=== PATIENT | female | born 1995 ===

== ENCOUNTER → 2016-11-30 | Outpatient (CLI) | payer BC ==
[2016-11-30 16:35] LABS: CH 26.9; CHCM 33.4; HCT 34.9 % (34.0-46.0); HDW 2.68; HGB 11.6 gm/dL (11.4-16.0); MCHC 33.4 g/dL (31.0-37.0); MCV 80.9 fL (80.0-100.0); Mean Platelet Volume 6.8; RBC 4.31 m/uL (3.80-5.40); RDW 13.9 % (11.5-15.5); WBC 10.1 k/uL (3.8-10.6)
[2016-11-30 16:50] LABS: Glucose 87 mg/dL (74-99); Non-African American GFR(MDRD) >60 (>60 ml/min/1.73 sqM)
[2016-11-30 17:21] LABS: Hepatitis B Surface Ag Index 0.06
[2016-12-01 00:24] LABS: Treponemal Ab Non-Reactive (Non-Reactive)
== END | disposition home or self-care (01) ==
LOC: LABWHC1 16:03
PROVIDERS: ATTEND Obstetrics & Gynecology
DX: Z34.91 Encounter for supervision of normal pregnancy, unspecified, first trimester (principal); Z3A.00 Weeks of gestation of pregnancy not specified
CPT/HCPCS: 36415; 82565; 82947; 85027; 86762; 86777; 86778; 86780; 86850; 86900; 86901; 87340

== ENCOUNTER → 2016-12-27 | Outpatient (CLI) | payer BC ==
--- NOTE | 2016-12-27 10:49 | US ---
EXAMINATION TYPE: US OB anatomy transabd second trimester DATE OF EXAM: 12/27/2016 10:34 AM COMPARISON: First trimester ultrasound November 09, 2016 HISTORY: LGA TECHNIQUE: Transvaginal (TV) and Transabdominal (TA) EXAM MEASUREMENTS: GESTATIONAL AGE / DATING Physician Established: (19 weeks/6 days) EDC: 05/17/17 Dates by LMP: unknown Dates by First Scan: (19 weeks/6 days) EDC: 05/17/17 Dates by Current Scan for: (19 weeks/2 days) EDC: 05/21/17 SURVEY IUP: Single PLACENTA: Posterior PREVIA: No previa GIANNI: 10.6 cm Normal CERVICAL LENGTH (transabdominal: norm > 3.0cm): 4.1 cm BIOMETRY PRESENTATION: Variable LIE: Transverse lie with head maternal LT BPD: 4.1 cm 18 weeks / 3 days HC: 16.0 cm 18 weeks / 6 days AC: 14.5 cm 19 weeks / 5 days FL: 3.2 cm 19 weeks / 6 days ESTIMATED WEIGHT IN GRAMS: 304.5 grams ESTIMATED WEIGHT IN LBS/OZS: 0 lbs. 11 oz. WEIGHT PERCENTAGE BASED ON ESTABLISHED DATE: 33.4 % HC/AC: 1.11 Normal FL/AC: 21.82 Normal HEART RATE: 137 bpm RHYTHM: Normal ANATOMY SEEN (within normal limits): * Lateral Vent (< 1 cm) 0.5 cm * Cisterna Magna (< 1.1 cm) 0.4 cm * Nuchal Fold (< 0.6 cm) 0.3 cm * Cerebellum (varies with age) 1.5 cm Choroid Plexus (bilateral) Midline Falx Cavus Septi Pellucidi Four Chamber Heart Outflow tracts: LVOT/RVOT Stomach Situs Diaphragm Kidneys (bilateral) Bladder Cord Insert Three Vessel Cord Longitudinal Spine Transverse Spine Arms (bilateral) Legs (bilateral) ANATOMY NOT SEEN: due to position Nose / Lips TECHNOLOGIST IMPRESSION: Single viable IUP 19wks/2days with MIGUEL ÁNGEL of 05/21/17 Single live intrauterine gestation is redemonstrated. Amniotic fluid index is within normal limits. T here is no ultrasound evidence for placenta previa. Variable presentation to fetus is currently seen. biometry measurements are within normal limits. Detailed anatomical survey shows no suspicious abnormality during real-time scanning. nose and lips are suboptimally evaluated due to positio carlos. IMPRESSION: As above
== END | disposition home or self-care (01) ==
LOC: RADUSWWP 09:14
PROVIDERS: ATTEND Obstetrics & Gynecology
DX: O36.62X0 Maternal care for excessive fetal growth, second trimester, not applicable or unspecified (principal); Z3A.19 19 weeks gestation of pregnancy
CPT/HCPCS: 76811

== ENCOUNTER → 2017-01-29 | Outpatient (CLI) | payer BC ==
[2017-01-29 12:16] LABS: CH 26.7; CHCM 32.7; HCT 32.5 % (34.0-46.0); HDW 3.26; HGB 10.4 gm/dL (11.4-16.0); Hypochromasia Slight; MCH 26.3 pg (25.0-35.0); MCV 82.2 fL (80.0-100.0); Mean Platelet Volume 7.6; RBC 3.95 m/uL (3.80-5.40)
== END ==
LOC: LABWHC1 10:53
PROVIDERS: ATTEND Obstetrics & Gynecology
DX: Z34.82 Encounter for supervision of other normal pregnancy, second trimester (principal)
CPT/HCPCS: 36415; 82950; 85027

== ENCOUNTER → 2017-02-28 | Outpatient (CLI) | payer BC ==
[2017-02-28 12:48] LABS: Glucose 3 Hour, Gest 78 mg/dL
== END | disposition home or self-care (01) ==
LOC: LABWHC1 08:27
PROVIDERS: ATTEND Obstetrics & Gynecology
DX: O24.419 Gestational diabetes mellitus in pregnancy, unspecified control (principal); Z3A.00 Weeks of gestation of pregnancy not specified
CPT/HCPCS: 36415; 82951; 82952

== ENCOUNTER 2017-05-23 10:47 | Inpatient (IN) | payer BC ==
[2017-05-23] MEDS ORDERED: LIDOCAINE 1% (PF) 10 MG/ML (30 ML SDV) SQ PRN (10:56)
[2017-05-23] MEDS ORDERED: OXYTOCIN 10 UNIT/ML 1 ML VIAL IM PRN (10:56)
[2017-05-23] MEDS ORDERED: TERBUTALINE 1 MG/ML VIAL SQ PRN (10:56)
[2017-05-23] MEDS ORDERED: METHYLERGONOVINE 0.2 MG/ML 1 ML AMP IM PRN (10:56)
[2017-05-23] MEDS ORDERED: CARBOPROST TROMETHAMINE 250 MCG/ML 1 ML AMP IM PRN (10:56)
[2017-05-23] MEDS ORDERED: OXYTOCIN 20 UNITS/1000 ML NS 1,000 ML IV SCH ×2 (11:00→17:45)
[2017-05-23] MEDS ORDERED: LACTATED RINGERS 1,000 ML IV SCH (11:00)
[2017-05-23 11:31] VITALS: BMI 33.9
[2017-05-23 11:46] LABS: Basophils % (A) 0 %; CH 20.8; CHCM 30.3; Eosinophils # (A) 0.1 k/uL (0-0.7); Eosinophils % (A) 1 %; HCT 30.5 % (34.0-46.0); HGB 9.6 gm/dL (11.4-16.0); Hypochromasia Marked; Luc # (Auto) 0.21; Luc % (Auto) 2; Lymphocytes # (A) 1.6 k/uL (1.0-4.8); Lymphocytes % (A) 15 %; MCH 21.8 pg (25.0-35.0); MCHC 31.5 g/dL (31.0-37.0); MCV 69.2 fL (80.0-100.0); Mean Platelet Volume 6.9; Microcytosis Marked; Monocytes # (A) 0.5 k/uL (0-1.0); Monocytes % (A) 4 %; Neutrophils # (A) 8.3 k/uL (1.3-7.7); Neutrophils % (A) 78 %; RBC 4.41 m/uL (3.80-5.40); WBC 10.7 k/uL (3.8-10.6); WBC (Perox) 11.33
[2017-05-23] MEDS ORDERED: BUPIVACAINE (PF) 0.25% 30 ML VIAL ONE (14:39)
[2017-05-23] MEDS ORDERED: SODIUM CHLORIDE 0.9% 100 ML BAG ONE (14:39)
[2017-05-23] MEDS ORDERED: fentaNYL (PF) 50 MCG/ML 5 ML AMP ONE (14:39)
[2017-05-23] MEDS ORDERED: Acetaminophen-Codeine 300-30mg TAB PO PRN ×2 (17:42)
[2017-05-23] MEDS ORDERED: diphenhydrAMINE 50 MG/ML 1 ML VIAL IVP PRN ×2 (17:42)
[2017-05-23] MEDS ORDERED: diphenhydrAMINE 25 MG CAP PO PRN (17:42)
[2017-05-23] MEDS ORDERED: IBUPROFEN 600 MG TAB PO PRN (17:42)
[2017-05-23] MEDS ORDERED: SIMETHICONE 80 MG CHEWABLE PO PRN (17:42)
[2017-05-23] MEDS ORDERED: WITCH HAZEL 1 EACH MED..PAD TOPICAL PRN (17:42)
[2017-05-23] MEDS ORDERED: LANOLIN CREAM 5 GM TUBE TOPICAL PRN (17:42)
[2017-05-23] MEDS ORDERED: ACETAMINOPHEN TAB 325 MG TAB PO PRN (17:42)
[2017-05-23] MEDS ORDERED: BENZOCAINE/MENTHOL SPRAY 1 GM/SPRAY AEROSOL TOPICAL PRN (17:42)
[2017-05-23] MEDS ORDERED: diphenhydrAMINE 50 MG CAP PO PRN (17:42)
[2017-05-23] MEDS ORDERED: HYDROCORTISONE 2.5% RECTAL CREAM 30 GM TUBE RECTAL PRN (17:42)
[2017-05-23] MEDS ORDERED: ZOLPIDEM 5 MG TAB PO PRN (17:42)
--- NOTE | 2017-05-23 17:45 | P.HPOB ---
History of Present Illness H&P Date: 05/23/17 Chief Complaint: Induction of labor 21-year-old presents at 40 weeks and 6 days for induction of labor. She came to my office today for a NST and GIANNI. If the GIANNI was 16 cm but the NST reactive did have some variable decelerations. She was sent to labor and delivery for induction of labor. Her cervix is 3 cm dilated, 70% effaced, -3 station. She is clovis irregularly. heart tones 135 -140 with moderate variability and reactive. Review of Systems All systems: negative Constitutional: Denies chills, Denies fever Eyes: denies blurred vision, denies pain Ears, nose, mouth and throat: Denies headache, Denies sore throat Cardiovascular: Denies chest pain, Denies shortness of breath Respiratory: Denies cough Gastrointestinal: Denies abdominal pain, Denies diarrhea, Denies nausea, Denies vomiting Genitourinary: Denies dysuria, Denies hematuria Musculoskeletal: Denies myalgias Integumentary: Denies pruritus, Denies rash Neurological: Denies numbness, Denies weakness Psychiatric: Denies anxiety, Denies depression Endocrine: Denies fatigue, Denies weight change Past Medical History Past Medical History: No Reported History Additional Past Medical History / Comment(s): Obstetric history: She's had one previous vaginal delivery. Her second Blood type O positive, antibodies negative, rubella immune, treponema antibody negative, toxoplasmosis negative, hepatitis B negative. Abnormal one-hour close tolerance test but normal 3 hour. History of Any Multi-Drug Resistant Organisms: None Reported Past Surgical History: No Surgical Hx Reported Past Anesthesia/Blood Transfusion Reactions: No Reported Reaction Past Psychological History: No Psychological Hx Reported Smoking Status: Never smoker Past Alcohol Use History: None Reported Past Drug Use History: None Reported - Past Family History Mother Family Medical History: Cancer, Diabetes Mellitus Father Family Medical History: Hypertension Medications and Allergies Home Medications Medication Instructions Recorded Confirmed Type Pnv,Calcium 72/Iron/Folic Acid 1 tab PO DAILY 02/17/16 02/29/16 History [Pnv Plus Multivit Tab] Allergies Allergy/AdvReac Type Severity Reaction Status Date / Time meclizine Allergy Rash/Hives Verified 05/23/17 10:55 sulfamethoxazole AdvReac Rash/Hives Verified 05/23/17 10:55 [From Bactrim] trimethoprim [From Bactrim] AdvReac Rash/Hives Verified 05/23/17 10:55 Exam Osteopathic Statement: *. No significant issues noted on an osteopathic structural exam other than those noted in the History and Physical/Consult. - Vital Signs Vital signs: Vital Signs Temp Pulse Resp BP 05/23/17 17:20 93 16 112/80 05/23/17 17:05 98.1 F 95 16 111/64 05/23/17 11:27 96.8 F L 73 18 125/71 Intake and Output 05/23/17 05/23/17 05/23/17 06:59 14:59 22:59 Intake Total 18.4 Balance 18.4 Intake: Intake, IV Titration 18.4 Amount Oxytocin 20 Units/1000 ml 18.4 Ns 1,000 ml @ 1 MILLIUNIT/MIN 3 mls/hr IV .Q24H VIVIEN Rx#:[id number] Other: Weight 76.204 kg Patient Weight 05/24/17 06:59 Weight 76.204 kg Heart: Regular rate and rhythm Lungs: Clear to auscultation bilaterally Abdomen: Soft, nontender Extremities: Negative Homans sign Results Result Diagrams: 05/23/17 11:15 Abnormal Lab Results - Last 24 Hours (Table) 05/23/17 Range/Units 11:15 WBC 10.7 H (3.8-10.6) k/uL Hgb 9.6 L (11.4-16.0) gm/dL Hct 30.5 L (34.0-46.0) % MCV 69.2 L (80.0-100.0) fL MCH 21.8 L (25.0-35.0) pg RDW 16.0 H (11.5-15.5) % Neutrophils # 8.3 H (1.3-7.7) k/uL Assessment and Plan (1) Normal labor Status: Acute Plan: 1. Induction of labor with amniotomy and Pitocin 2. Anticipate normal vaginal delivery
--- NOTE | 2017-05-23 17:47 | P.PROBDLV ---
Vaginal Delivery Note - . Vaginal Delivery Note: 21-year-old presented at 40 weeks and 6 days for induction of labor. Her cervix was 3 cm dilated, 70% effaced, -3 station. She is clovis irregularly. heart tones 100 3540 with moderate variability and reactive. Pitocin was started. Amniotomy was performed at 12:43 PM and thick meconium fluid was noted. She did get an epidural when she was 4 centers dilated. When she was completely dilated she pushed 3 times and delivered a viable female over intact perineum under epidural anesthesia at 1659. Head delivered OA, anterior shoulder delivered with downward traction followed by posterior shoulder and rest of body. Nose and mouth bulb suctioned, cord clamped and cut, placed mother's abdomen. Apgars 9, 9, weight 7 lbs. 4 oz. Placenta delivered spontaneously, intact with three-vessel cord at 1703. Vagina, cervix, and perineum were inspected. First-degree midline laceration was repaired with 3-0 Vicryl. Estimated blood loss 150 mL. Other and baby in stable condition.
[2017-05-23] MEDS: SENNOSIDES-DOCUSATE SODIUM 1 EACH TAB PO SCH (21:12)
[2017-05-24 04:37] VITALS: RESP 18
--- NOTE | 2017-05-24 08:21 | P.DS ---
Providers Date of admission: 05/23/17 10:47 Expected date of discharge: 05/24/17 Attending physician: Carissa Porras - Discharge Diagnosis(es) (1) Normal labor Current Visit: Yes Status: Resolved (2) Normal vaginal delivery Current Visit: Yes Status: Acute Hospital Course: Patient presented for induction of labor. Gen. are normal vaginal delivery. Had an uncomplicated course. She'll be discharged home # 1 in stable condition to follow-up With me in 6 weeks. Plan - Discharge Summary New Discharge Prescriptions: No Action Pnv,Calcium 72/Iron/Folic Acid [Pnv Plus Multivit Tab] 1 tab PO DAILY Discharge Medication List Pnv,Calcium 72/Iron/Folic Acid [Pnv Plus Multivit Tab] 1 tab PO DAILY 02/17/16 [History] Follow up Appointment(s)/Referral(s): Carissa Porras DO [Doctor of Osteopathic Medicine] - 6 Weeks
[2017-05-24] MEDS: SENNOSIDES-DOCUSATE SODIUM 1 EACH TAB PO SCH (08:35)
[2017-05-24 09:30] VITALS: BP 120/69; PULSE 85; TEMP 98.3
== END 2017-05-24 18:33 | disposition home or self-care (01) | DRG 775 ==
LOC: 4FBP 10:47
PROVIDERS: ADMIT Obstetrics & Gynecology; ATTEND Obstetrics & Gynecology
PROC: 10E0XZZ Delivery of Products of Conception, External Approach (ICD-10-PCS; principal; 2017-05-23)
PROC: 0HQ9XZZ Repair Perineum Skin, External Approach (ICD-10-PCS; 2017-05-23)
PROC: 3E033VJ Introduction of Other Hormone into Peripheral Vein, Percutaneous Approach (ICD-10-PCS; 2017-05-23)
PROC: 10907ZC Drainage of Amniotic Fluid, Therapeutic from Products of Conception, Via Natural or Artificial Opening (ICD-10-PCS; 2017-05-23)
PROC: 00HU33Z Insertion of Infusion Device into Spinal Canal, Percutaneous Approach (ICD-10-PCS; 2017-05-23)
PROC: 3E0R3CZ (ICD-10-PCS; 2017-05-23)
DX: O77.0 Labor and delivery complicated by meconium in amniotic fluid (principal); O70.0 First degree perineal laceration during delivery; Z37.0 Single live birth; Z88.1 Allergy status to other antibiotic agents; Z88.2 Allergy status to sulfonamides; Z88.8 Allergy status to other drugs, medicaments and biological substances; Z3A.40 40 weeks gestation of pregnancy; Z82.49 Family history of ischemic heart disease and other diseases of the circulatory system; Z83.3 Family history of diabetes mellitus; Z80.9 Family history of malignant neoplasm, unspecified
CPT/HCPCS: 85025; 88307

== ENCOUNTER 2019-05-21 23:22 | Emergency (ER) | payer BC ==
[2019-05-21 23:32] VITALS: RESP 18
--- NOTE | 2019-05-22 00:02 | ED ---
Dizziness HPI - General Chief Complaint: Dizziness Stated Complaint: Medication Reaction Time Seen by Provider: 05/21/19 23:27 Source: patient, EMS Mode of arrival: EMS Limitations: no limitations - History of Present Illness MD Complaint: dizziness -: days(s) Timing: intermittent Description: "room spinning" History of Same: No History of Trauma: No Severity: moderate Improves With: remaining still Worsens With: other (Driving) Associated Symptoms: denies other symptoms - Related Data Home Medications Medication Instructions Recorded Confirmed Ferrous Sulfate [Feosol] 325 mg PO DAILY 05/21/19 05/21/19 Levothyroxine Sodium [Synthroid] 25 mcg PO DAILY 05/21/19 05/21/19 Allergies Allergy/AdvReac Type Severity Reaction Status Date / Time meclizine Allergy Rash/Hives Verified 05/21/19 23:40 sulfamethoxazole AdvReac Rash/Hives Verified 05/21/19 23:40 [From Bactrim] trimethoprim [From Bactrim] AdvReac Rash/Hives Verified 05/21/19 23:40 Review of Systems ROS Statement: Those systems with pertinent positive or pertinent negative responses have been documented in the HPI. ROS Other: All systems not noted in ROS Statement are negative. Constitutional: Denies: fever, chills Respiratory: Denies: cough, dyspnea Cardiovascular: Denies: chest pain, palpitations, edema, syncope Gastrointestinal: Denies: abdominal pain, vomiting, diarrhea Genitourinary: Denies: dysuria, frequency Musculoskeletal: Denies: back pain Skin: Denies: rash Neurological: Denies: headache, weakness, numbness, paresthesias, confusion Past Medical History Past Medical History: No Reported History Additional Past Medical History / Comment(s): Obstetric history: She's had one previous vaginal delivery. Her second Blood type O positive, antibodies negative, rubella immune,. Receving IV iron (Feraheme) secondary to anemia. History of Any Multi-Drug Resistant Organisms: None Reported Past Surgical History: No Surgical Hx Reported Past Anesthesia/Blood Transfusion Reactions: No Reported Reaction Past Psychological History: No Psychological Hx Reported Smoking Status: Never smoker Past Alcohol Use History: None Reported Past Drug Use History: None Reported - Past Family History Mother Family Medical History: Cancer, Diabetes Mellitus Father Family Medical History: Hypertension General Exam Limitations: no limitations General appearance: alert, in no apparent distress Head exam: Present: atraumatic, normocephalic Eye exam: Present: normal appearance, PERRL, EOMI. Absent: scleral icterus, conjunctival injection, nystagmus ENT exam: Present: normal oropharynx Neck exam: Present: normal inspection Respiratory exam: Present: normal lung sounds bilaterally. Absent: respiratory distress, wheezes, rales, rhonchi, stridor Cardiovascular Exam: Present: regular rate, normal rhythm, normal heart sounds. Absent: systolic murmur, diastolic murmur, rubs, gallop GI/Abdominal exam: Present: soft. Absent: distended, tenderness, guarding, rebound, rigid, mass Extremities exam: Present: normal inspection, normal capillary refill. Absent: pedal edema, calf tenderness Neurological exam: Present: alert, oriented X3, CN II-XII intact. Absent: motor sensory deficit Skin exam: Present: warm, dry, intact, normal color. Absent: rash Course Vital Signs 05/21/19 23:24 Temperature 98.5 F Pulse Rate 72 Respiratory 18 Rate Blood Pressure 115/80 O2 Sat by Pulse 99 Oximetry Medical Decision Making - Lab Data Result diagrams: 05/22/19 00:23 05/22/19 00:23 Lab Results 05/22/19 05/22/19 05/22/19 Range/Units 00:01 00:01 00:23 WBC 10.9 H (3.8-10.6) k/uL RBC 4.33 (3.80-5.40) m/uL Hgb 12.8 (11.4-16.0) gm/dL Hct 36.9 (34.0-46.0) % MCV 85.4 (80.0-100.0) fL MCH 29.6 (25.0-35.0) pg MCHC 34.6 (31.0-37.0) g/dL RDW 13.8 (11.5-15.5) % Plt Count 292 (150-450) k/uL Neutrophils % 68 % Lymphocytes % 22 % Monocytes % 5 % Eosinophils % 2 % Basophils % 0 % Neutrophils # 7.4 (1.3-7.7) k/uL Lymphocytes # 2.4 (1.0-4.8) k/uL Monocytes # 0.6 (0-1.0) k/uL Eosinophils # 0.3 (0-0.7) k/uL Basophils # 0.1 (0-0.2) k/uL Sodium (137-145) mmol/L Potassium (3.5-5.1) mmol/L Chloride (98-107) mmol/L Carbon Dioxide (22-30) mmol/L Anion Gap mmol/L BUN (7-17) mg/dL Creatinine (0.52-1.04) mg/dL Est GFR (CKD-EPI)AfAm (>60 ml/min/1.73 sqM) Est GFR (CKD-EPI)NonAf (>60 ml/min/1.73 sqM) Glucose (74-99) mg/dL Calcium (8.4-10.2) mg/dL Total Bilirubin (0.2-1.3) mg/dL AST (14-36) U/L ALT (9-52) U/L Alkaline Phosphatase (38-126) U/L Total Protein (6.3-8.2) g/dL Albumin (3.5-5.0) g/dL TSH (0.465-4.680) mIU/L Free T4 (0.78-2.19) ng/dL Urine Color Yellow Urine Appearance Cloudy H (Clear) Urine pH 7.0 (5.0-8.0) Ur Specific [place] 1.021 (1.001-1.035) Urine Protein Trace H (Negative) Urine Glucose (UA) Negative (Negative) Urine Ketones Negative (Negative) Urine Blood Moderate H (Negative) Urine Nitrite Negative (Negative) Urine Bilirubin Negative (Negative) Urine Urobilinogen <2.0 (<2.0) mg/dL Ur Leukocyte Esterase Small H (Negative) Urine RBC 1 (0-5) /hpf Urine WBC 1 (0-5) /hpf Ur Squamous Epith Cells 13 H (0-4) /hpf Urine Mucus Rare H (None) /hpf Urine HCG, Qual Not Detected (Not Detectd) Urine Opiates Screen Not Detected (NotDetected) Ur Oxycodone Screen Not Detected (NotDetected) Urine Methadone Screen Not Detected (NotDetected) Ur Propoxyphene Screen Not Detected (NotDetected) Ur Barbiturates Screen Not Detected (NotDetected) U Tricyclic Antidepress Not Detected (NotDetected) Ur Phencyclidine Scrn Not Detected (NotDetected) Ur Amphetamines Screen Not Detected (NotDetected) U Methamphetamines Scrn Not Detected (NotDetected) U Benzodiazepines Scrn Not Detected (NotDetected) Urine Cocaine Screen Not Detected (NotDetected) U Marijuana (THC) Screen Not Detected (NotDetected) 05/22/19 Range/Units 00:23 WBC (3.8-10.6) k/uL RBC (3.80-5.40) m/uL Hgb (11.4-16.0) gm/dL Hct (34.0-46.0) % MCV (80.0-100.0) fL MCH (25.0-35.0) pg MCHC (31.0-37.0) g/dL RDW (11.5-15.5) % Plt Count (150-450) k/uL Neutrophils % % Lymphocytes % % Monocytes % % Eosinophils % % Basophils % % Neutrophils # (1.3-7.7) k/uL Lymphocytes # (1.0-4.8) k/uL Monocytes # (0-1.0) k/uL Eosinophils # (0-0.7) k/uL Basophils # (0-0.2) k/uL Sodium 142 (137-145) mmol/L Potassium 4.4 (3.5-5.1) mmol/L Chloride 108 H (98-107) mmol/L Carbon Dioxide 26 (22-30) mmol/L Anion Gap 8 mmol/L BUN 15 (7-17) mg/dL Creatinine 0.81 (0.52-1.04) mg/dL Est GFR (CKD-EPI)AfAm >90 (>60 ml/min/1.73 sqM) Est GFR (CKD-EPI)NonAf >90 (>60 ml/min/1.73 sqM) Glucose 107 H (74-99) mg/dL Calcium 9.9 (8.4-10.2) mg/dL Total Bilirubin 0.3 (0.2-1.3) mg/dL AST 24 (14-36) U/L ALT 15 (9-52) U/L Alkaline Phosphatase 88 (38-126) U/L Total Protein 7.8 (6.3-8.2) g/dL Albumin 4.3 (3.5-5.0) g/dL TSH 8.630 H (0.465-4.680) mIU/L Free T4 0.95 (0.78-2.19) ng/dL Urine Color Urine Appearance (Clear) Urine pH (5.0-8.0) Ur Specific [place] (1.001-1.035) Urine Protein (Negative) Urine Glucose (UA) (Negative) Urine Ketones (Negative) Urine Blood (Negative) Urine Nitrite (Negative) Urine Bilirubin (Negative) Urine Urobilinogen (<2.0) mg/dL Ur Leukocyte Esterase (Negative) Urine RBC (0-5) /hpf Urine WBC (0-5) /hpf Ur Squamous Epith Cells (0-4) /hpf Urine Mucus (None) /hpf Urine HCG, Qual (Not Detectd) Urine Opiates Screen (NotDetected) Ur Oxycodone Screen (NotDetected) Urine Methadone Screen (NotDetected) Ur Propoxyphene Screen (NotDetected) Ur Barbiturates Screen (NotDetected) U Tricyclic Antidepress (NotDetected) Ur Phencyclidine Scrn (NotDetected) Ur Amphetamines Screen (NotDetected) U Methamphetamines Scrn (NotDetected) U Benzodiazepines Scrn (NotDetected) Urine Cocaine Screen (NotDetected) U Marijuana (THC) Screen (NotDetected) Disposition Clinical Impression: Hypothyroid Disposition: HOME SELF-CARE Condition: Good Instructions (If sedation given, give patient instructions): Hypothyroidism (ED) Is patient prescribed a controlled substance at d/c from ED?: No Referrals: Treva Aguirre MD [Primary Care Provider] - 1-2 days
[2019-05-22 00:27] LABS: Appearance,Urine Cloudy (Clear); Bilirubin,Urine Negative (Negative); Blood,Urine Moderate (Negative); Color,Urine Yellow; Glucose,Urine (UA) Negative (Negative); Ketones,Urine Negative (Negative); Leukocyte Esterase,Urine Small (Negative); Mucus,Urine Rare /hpf; Nitrite,Urine Negative (Negative); Protein,Urine Trace (Negative); RBC,Urine 1 /hpf (0-5); Specific Gravity,Urine 1.021 (1.001-1.035); Squamous Epithelial Cell,Urine 13 /hpf (0-4); Urobilinogen,Urine <2.0 mg/dL (<2.0); WBC,Urine 1 /hpf (0-5)
[2019-05-22 00:31] LABS: Basophils # (A) 0.1 k/uL (0-0.2); Basophils % (A) 0 %; Eosinophils # (A) 0.3 k/uL (0-0.7); Eosinophils % (A) 2 %; HCT 36.9 % (34.0-46.0); HGB 12.8 gm/dL (11.4-16.0); Lymphocytes # (A) 2.4 k/uL (1.0-4.8); Lymphocytes % (A) 22 %; MCH 29.6 pg (25.0-35.0); MCHC 34.6 g/dL (31.0-37.0); MCV 85.4 fL (80.0-100.0); Mean Platelet Volume 7.7; Monocytes # (A) 0.6 k/uL (0-1.0); Monocytes % (A) 5 %; Neutrophils # (A) 7.4 k/uL (1.3-7.7); Neutrophils % (A) 68 %; Platelet Count 292 k/uL (150-450); RBC 4.33 m/uL (3.80-5.40); RDW 13.8 % (11.5-15.5); WBC 10.9 k/uL (3.8-10.6)
[2019-05-22 00:33] LABS: Amphetamine Screen,Urine Not Detected (NotDetected); Barbiturate Screen,Urine Not Detected (NotDetected); Benzodiazepines Screen,Urine Not Detected (NotDetected); Cocaine Screen,Urine Not Detected (NotDetected); Methadone Screen, Urine Not Detected (NotDetected); Opiate Screen,Urine Not Detected (NotDetected); Oxycodone Screen, Urine Not Detected (NotDetected); Phencyclidine Screen,Urine Not Detected (NotDetected); Tricyclic Antidepressant,Urine Not Detected (NotDetected); Urn Cannabinoid Scrn Not Detected (NotDetected)
[2019-05-22 01:05] LABS: ALT 15 U/L (9-52); AST 24 U/L (14-36); African American GFR (CKD) >90 (>60 ml/min/1.73 sqM); Albumin 4.3 g/dL (3.5-5.0); Alkaline Phosphatase 88 U/L (38-126); Anion Gap 8 mmol/L; Blood Urea Nitrogen 15 mg/dL (7-17); Calcium 9.9 mg/dL (8.4-10.2); Carbon Dioxide 26 mmol/L (22-30); Chloride 108 mmol/L (98-107); Glucose 107 mg/dL (74-99); Potassium 4.4 mmol/L (3.5-5.1); Sodium 142 mmol/L (137-145); Total Bilirubin 0.3 mg/dL (0.2-1.3); Total Protein 7.8 g/dL (6.3-8.2)
[2019-05-22 01:43] LABS: T4, Free (Free Thyroxine) 0.95 ng/dL (0.78-2.19)
[2019-05-22 01:50] VITALS: BP 115/71; PULSE 79; TEMP 98.2
== END 2019-05-22 02:07 | disposition home or self-care (01) ==
LOC: EC 23:22
DX: E03.9 Hypothyroidism, unspecified (principal); R42 Dizziness and giddiness; D64.9 Anemia, unspecified; Z79.890 Hormone replacement therapy; Z79.899 Other long term (current) drug therapy; Z88.8 Allergy status to other drugs, medicaments and biological substances; Z88.2 Allergy status to sulfonamides
CPT/HCPCS: 36415; 80053; 80306; 81001; 81025; 84439; 84443; 85025; 99284

== ENCOUNTER → 2019-05-25 | Outpatient (CLI) | payer BC | END | disposition home or self-care (01) | LOC: RADMRIMAIN 16:57 | PROVIDERS: ATTEND Psychiatry & Neurology Neurology | DX: Z53.9 Procedure and treatment not carried out, unspecified reason (principal) ==

== ENCOUNTER 2020-02-11 07:30 | Emergency (ER) | payer BC ==
[2020-02-11 07:38] VITALS: TEMP 98.6
[2020-02-11] MEDS ORDERED: ACETAMINOPHEN TAB 500 MG TAB PO STA (07:56)
[2020-02-11] MEDS ORDERED: SODIUM CHLORIDE 0.9% 1,000 ML IV STA (07:56)
--- NOTE | 2020-02-11 08:00 | ED ---
General Adult HPI - General Chief complaint: Headache Stated complaint: rt sided head pain Time Seen by Provider: 02/11/20 07:42 Source: patient, family, RN notes reviewed Mode of arrival: wheelchair Limitations: no limitations - History of Present Illness Initial comments: 24-year-old female currently about 4-6 weeks with an LMP of appro ximately 01/11/2020 presents to the emergency department for multiple complaints. Patient states that yesterday she started to get a headache on the right side of her head. States that today when she woke up she felt nauseous. States that she vomited 2-3 times. States that this worsened her headache. Patient denies any visual changes. Denies any neck pain or stiffness. Denies any fevers or chills. Patient took an Aleve prior to arrival. Patient states she may be dehydrated. Patient denies any vaginal discharge, vaginal bleeding, or abdominal pain.patient also reports that she was short of breath last night when her headache started but states that since that time she has not had any shortness of breath whatsoever. No cough. Patient has no other complaints at this time including shortness of breath, chest pain, abdominal pain, nausea or vomiting, or visual changes. - Related Data Home Medications Medication Instructions Recorded Confirmed Ferrous Sulfate [Feosol] 325 mg PO DAILY 05/21/19 05/21/19 Levothyroxine Sodium [Synthroid] 25 mcg PO DAILY 05/21/19 05/21/19 Previous Rx's Medication Instructions Recorded Cephalexin [Keflex] 500 mg PO Q12HR 7 Days #14 cap 02/11/20 Pnv No.95/Ferrous Fum/Folic AC 1 tab PO DAILY #30 tablet 02/11/20 [ Multivitamin Tablet] Allergies Allergy/AdvReac Type Severity Reaction Status Date / Time meclizine Allergy Rash/Hives Verified 05/21/19 23:40 sulfamethoxazole AdvReac Rash/Hives Verified 05/21/19 23:40 [From Bactrim] trimethoprim [From Bactrim] AdvReac Rash/Hives Verified 05/21/19 23:40 Review of Systems ROS Statement: Those systems with pertinent positive or pertinent negative responses have been documented in the HPI. ROS Other: All systems not noted in ROS Statement are negative. Past Medical History Past Medical History: No Reported History Additional Past Medical History / Comment(s): Obstetric history: She's had one previous vaginal delivery. Her second Blood type O positive, antibodies negative, rubella immune,. Receving IV iron (Feraheme) secondary to anemia. History of Any Multi-Drug Resistant Organisms: None Reported Past Surgical History: No Surgical Hx Reported Past Anesthesia/Blood Transfusion Reactions: No Reported Reaction Past Psychological History: No Psychological Hx Reported Smoking Status: Never smoker Past Alcohol Use History: None Reported Past Drug Use History: None Reported - Past Family History Mother Family Medical History: Cancer, Diabetes Mellitus Father Family Medical History: Hypertension General Exam Limitations: no limitations General appearance: alert, in no apparent distress Head exam: Present: atraumatic, normocephalic, normal inspection Eye exam: Present: normal appearance, PERRL, EOMI. Absent: scleral icterus, conjunctival injection ENT exam: Present: normal exam, normal oropharynx, mucous membranes moist, TM's normal bilaterally, normal external ear exam Neck exam: Present: normal inspection, full ROM. Absent: tenderness, meningismus, lymphadenopathy Respiratory exam: Present: normal lung sounds bilaterally. Absent: respiratory distress, wheezes, rales, rhonchi, stridor Cardiovascular Exam: Present: regular rate, normal rhythm, normal heart sounds. Absent: systolic murmur, diastolic murmur, rubs, gallop, clicks GI/Abdominal exam: Present: soft, normal bowel sounds. Absent: distended, tenderness, guarding, rebound, rigid Neurological exam: Present: alert, oriented X3, normal gait, other (GCS 15) Expanded Patient oriented to: Present: person, place, time Speech: Present: fluid speech Cranial nerves: EOM's Intact: Normal, Nystagmus: Normal, Facial Sensation: Normal Cerebellar function: Finger to Nose: Normal, Romberg: Normal Upper motor neuron: Pronator Drift: Normal Sensory exam: Upper Extremity Light Touch: Normal, Upper Extremity Pin Prick: Normal, Lower Extremity Light Touch: Normal, Lower Extremity Pin Prick: Normal Motor strength exam: RUE: 5, LUE: 5, RLE: 5, LLE: 5 Eye Response: (4) open spontaneously Motor Response: (6) obeys commands Verbal Response: (5) oriented Annie Total: 15 Course Vital Signs 02/11/20 02/11/20 07:31 07:38 Temperature 98.6 F Pulse Rate 99 91 Respiratory 18 Rate Blood Pressure 112/73 120/70 O2 Sat by Pulse 100 99 Oximetry Medical Decision Making - Medical Decision Making HPI and physical exam as documented. No focal neurologic deficits. Patient is well-appearing. CBC and CMP are unremarkable. Urinalysis shows 29 squamous cells. No significant signs of infection. Patient denies dysuria. She was given fluids and Tylenol and states that her headache "is almost gone." Patient rates the pain at a 1 out of 10. Patient is feeling much better. Patient will follow up with primary care in 1-2 days. She will return for any worsening symptoms. Patient will be treated with Keflex for asymptomatic bacteriuria. - Lab Data Result diagrams: 02/11/20 07:59 02/11/20 07:59 Lab Results 02/11/20 02/11/20 02/11/20 Range/Units 07:59 07:59 08:00 WBC 11.5 H (3.8-10.6) k/uL RBC 4.71 (3.80-5.40) m/uL Hgb 13.6 (11.4-16.0) gm/dL Hct 40.9 (34.0-46.0) % MCV 86.9 (80.0-100.0) fL MCH 29.0 (25.0-35.0) pg MCHC 33.4 (31.0-37.0) g/dL RDW 12.5 (11.5-15.5) % Plt Count 272 (150-450) k/uL Neutrophils % 80 % Lymphocytes % 14 % Monocytes % 4 % Eosinophils % 1 % Basophils % 0 % Neutrophils # 9.1 H (1.3-7.7) k/uL Lymphocytes # 1.6 (1.0-4.8) k/uL Monocytes # 0.4 (0-1.0) k/uL Eosinophils # 0.1 (0-0.7) k/uL Basophils # 0.0 (0-0.2) k/uL Sodium 137 (137-145) mmol/L Potassium 4.0 (3.5-5.1) mmol/L Chloride 106 (98-107) mmol/L Carbon Dioxide 19 L (22-30) mmol/L Anion Gap 12 mmol/L BUN 10 (7-17) mg/dL Creatinine 0.59 (0.52-1.04) mg/dL Est GFR (CKD-EPI)AfAm >90 (>60 ml/min/1.73 sqM) Est GFR (CKD-EPI)NonAf >90 (>60 ml/min/1.73 sqM) Glucose 117 H (74-99) mg/dL Calcium 9.5 (8.4-10.2) mg/dL Total Bilirubin 0.4 (0.2-1.3) mg/dL AST 22 (14-36) U/L ALT 13 (4-34) U/L Alkaline Phosphatase 91 (38-126) U/L Total Protein 8.3 H (6.3-8.2) g/dL Albumin 4.4 (3.5-5.0) g/dL Urine Color Yellow Urine Appearance Cloudy H (Clear) Urine pH 6.0 (5.0-8.0) Ur Specific [place] 1.026 (1.001-1.035) Urine Protein Negative (Negative) Urine Glucose (UA) Negative (Negative) Urine Ketones Negative (Negative) Urine Blood Negative (Negative) Urine Nitrite Negative (Negative) Urine Bilirubin Negative (Negative) Urine Urobilinogen <2.0 (<2.0) mg/dL Ur Leukocyte Esterase Large H (Negative) Urine WBC 9 H (0-5) /hpf Ur Squamous Epith Cells 29 H (0-4) /hpf Urine Bacteria Rare H (None) /hpf Urine Mucus Moderate H (None) /hpf Urine HCG, Qual (Not Detectd) 02/11/20 Range/Units 08:00 WBC (3.8-10.6) k/uL RBC (3.80-5.40) m/uL Hgb (11.4-16.0) gm/dL Hct (34.0-46.0) % MCV (80.0-100.0) fL MCH (25.0-35.0) pg MCHC (31.0-37.0) g/dL RDW (11.5-15.5) % Plt Count (150-450) k/uL Neutrophils % % Lymphocytes % % Monocytes % % Eosinophils % % Basophils % % Neutrophils # (1.3-7.7) k/uL Lymphocytes # (1.0-4.8) k/uL Monocytes # (0-1.0) k/uL Eosinophils # (0-0.7) k/uL Basophils # (0-0.2) k/uL Sodium (137-145) mmol/L Potassium (3.5-5.1) mmol/L Chloride (98-107) mmol/L Carbon Dioxide (22-30) mmol/L Anion Gap mmol/L BUN (7-17) mg/dL Creatinine (0.52-1.04) mg/dL Est GFR (CKD-EPI)AfAm (>60 ml/min/1.73 sqM) Est GFR (CKD-EPI)NonAf (>60 ml/min/1.73 sqM) Glucose (74-99) mg/dL Calcium (8.4-10.2) mg/dL Total Bilirubin (0.2-1.3) mg/dL AST (14-36) U/L ALT (4-34) U/L Alkaline Phosphatase (38-126) U/L Total Protein (6.3-8.2) g/dL Albumin (3.5-5.0) g/dL Urine Color Urine Appearance (Clear) Urine pH (5.0-8.0) Ur Specific [place] (1.001-1.035) Urine Protein (Negative) Urine Glucose (UA) (Negative) Urine Ketones (Negative) Urine Blood (Negative) Urine Nitrite (Negative) Urine Bilirubin (Negative) Urine Urobilinogen (<2.0) mg/dL Ur Leukocyte Esterase (Negative) Urine WBC (0-5) /hpf Ur Squamous Epith Cells (0-4) /hpf Urine Bacteria (None) /hpf Urine Mucus (None) /hpf Urine HCG, Qual Detected (Not Detectd) Disposition Clinical Impression: Headache, Asymptomatic bacteriuria Disposition: HOME SELF-CARE Condition: Good Instructions (If sedation given, give patient instructions): Acute Headache (ED) Additional Instructions: Please drink plenty of fluids. Take Tylenol for pain. Take antibiotics as directed. Take vitamins. Follow up with primary care and [employer] [facility]. If you have any worsening symptoms return to the emergency department. Prescriptions: Cephalexin [Keflex] 500 mg PO Q12HR 7 Days #14 cap Pnv No.95/Ferrous Fum/Folic AC [ Multivitamin Tablet] 1 tab PO DAILY #30 tablet Is patient prescribed a controlled substance at d/c from ED?: No Referrals: Treva Aguirre MD [Primary Care Provider] - 1-2 days Time of Disposition: 08:38
[2020-02-11 08:08] LABS: Basophils % (A) 0 %; Eosinophils # (A) 0.1 k/uL (0-0.7); Eosinophils % (A) 1 %; HCT 40.9 % (34.0-46.0); HGB 13.6 gm/dL (11.4-16.0); Lymphocytes # (A) 1.6 k/uL (1.0-4.8); Lymphocytes % (A) 14 %; MCHC 33.4 g/dL (31.0-37.0); MCV 86.9 fL (80.0-100.0); Mean Platelet Volume 7.3; Monocytes # (A) 0.4 k/uL (0-1.0); Monocytes % (A) 4 %; Neutrophils # (A) 9.1 k/uL (1.3-7.7); Neutrophils % (A) 80 %; Platelet Count 272 k/uL (150-450); RBC 4.71 m/uL (3.80-5.40); RDW 12.5 % (11.5-15.5); WBC 11.5 k/uL (3.8-10.6)
[2020-02-11 08:09] LABS: Appearance,Urine Cloudy (Clear); Bacteria,Urine Rare /hpf; Bilirubin,Urine Negative (Negative); Blood,Urine Negative (Negative); Color,Urine Yellow; Glucose,Urine (UA) Negative (Negative); Ketones,Urine Negative (Negative); Leukocyte Esterase,Urine Large (Negative); Mucus,Urine Moderate /hpf; Nitrite,Urine Negative (Negative); Protein,Urine Negative (Negative); Specific Gravity,Urine 1.026 (1.001-1.035); Squamous Epithelial Cell,Urine 29 /hpf (0-4); Urobilinogen,Urine <2.0 mg/dL (<2.0); WBC,Urine 9 /hpf (0-5)
[2020-02-11 08:20] LABS: ALT 13 U/L (4-34); AST 22 U/L (14-36); African American GFR (CKD) >90 (>60 ml/min/1.73 sqM); Albumin 4.4 g/dL (3.5-5.0); Alkaline Phosphatase 91 U/L (38-126); Anion Gap 12 mmol/L; Blood Urea Nitrogen 10 mg/dL (7-17); Calcium 9.5 mg/dL (8.4-10.2); Carbon Dioxide 19 mmol/L (22-30); Chloride 106 mmol/L (98-107); Glucose 117 mg/dL (74-99); Non-African American GFR(CKD) >90 (>60 ml/min/1.73 sqM); Sodium 137 mmol/L (137-145); Total Bilirubin 0.4 mg/dL (0.2-1.3); Total Protein 8.3 g/dL (6.3-8.2)
[2020-02-11 09:10] VITALS: BP 113/76; PULSE 86; RESP 16
== END 2020-02-11 09:09 | disposition home or self-care (01) ==
LOC: EC 07:30
DX: O99.89 Other specified diseases and conditions complicating pregnancy, childbirth and the puerperium (principal); R51 Headache; R82.71 Bacteriuria; R82.998 Other abnormal findings in urine; R40.2412 Glasgow coma scale score 13-15, at arrival to emergency department; O21.9 Vomiting of pregnancy, unspecified; O99.111 Other diseases of the blood and blood-forming organs and certain disorders involving the immune mechanism complicating pregnancy, first trimester; D64.9 Anemia, unspecified; Z88.2 Allergy status to sulfonamides; Z88.8 Allergy status to other drugs, medicaments and biological substances; Z79.899 Other long term (current) drug therapy; Z67.40 Type O blood, Rh positive; Z3A.01 Less than 8 weeks gestation of pregnancy
CPT/HCPCS: 36415; 80053; 81001; 81025; 85025; 87086; 96360; 99284

== ENCOUNTER 2020-09-30 06:00 | Inpatient (IN) | payer BC, OTHER ==
[2020-09-30] MEDS ORDERED: LIDOCAINE 0.5% (PF) 5 MG/ML (50 ML SDV) SQ PRN (06:23)
[2020-09-30] MEDS ORDERED: CARBOPROST TROMETHAMINE 250 MCG/ML 1 ML AMP IM PRN (06:23)
[2020-09-30] MEDS ORDERED: METHYLERGONOVINE 0.2 MG/ML 1 ML AMP IM PRN (06:23)
[2020-09-30] MEDS ORDERED: OXYTOCIN 10 UNIT/ML 1 ML VIAL IM PRN (06:23)
[2020-09-30] MEDS ORDERED: TERBUTALINE 1 MG/ML VIAL SQ PRN (06:23)
[2020-09-30] MEDS ORDERED: LACTATED RINGERS 1,000 ML IV SCH (06:30)
[2020-09-30] MEDS ORDERED: OXYTOCIN 30 UNITS/500 ML NS 30 UNIT in SALINE 1 500ML.BAG IV SCH (06:30)
[2020-09-30] MEDS: LACTATED RINGERS 1,000 ML IV SCH ×2 (06:31→10:14)
[2020-09-30 07:27] LABS: Basophils % (A) 0 %; Eosinophils # (A) 0.2 k/uL (0-0.7); Eosinophils % (A) 2 %; HCT 34.5 % (34.0-46.0); HGB 10.8 gm/dL (11.4-16.0); Hypochromasia Moderate; Lymphocytes # (A) 2.3 k/uL (1.0-4.8); Lymphocytes % (A) 19 %; MCH 23.5 pg (25.0-35.0); MCHC 31.4 g/dL (31.0-37.0); Mean Platelet Volume 7.5; Microcytosis Slight; Monocytes # (A) 0.5 k/uL (0-1.0); Monocytes % (A) 4 %; Neutrophils # (A) 8.6 k/uL (1.3-7.7); Neutrophils % (A) 73 %; Platelet Count 246 k/uL (150-450); Poikilocytosis Slight; RBC 4.61 m/uL (3.80-5.40); WBC 11.8 k/uL (3.8-10.6)
[2020-09-30] MEDS ORDERED: fentaNYL (PF) 50 MCG/ML 5 ML AMP ONE (10:21)
[2020-09-30] MEDS ORDERED: ROPIVACAINE 5MG/ML 20ML VIAL ONE (10:21)
[2020-09-30] MEDS ORDERED: SODIUM CHLORIDE 0.9% 100 ML BAG ONE (10:21)
[2020-09-30] MEDS ORDERED: SIMETHICONE 80 MG CHEWABLE PO PRN (12:49)
[2020-09-30] MEDS ORDERED: diphenhydrAMINE 50 MG CAP PO PRN (12:49)
[2020-09-30] MEDS ORDERED: ZOLPIDEM 5 MG TAB PO PRN (12:49)
[2020-09-30] MEDS ORDERED: diphenhydrAMINE 25 MG CAP PO PRN (12:49)
[2020-09-30] MEDS ORDERED: BENZOCAINE/MENTHOL SPRAY 1 GM/SPRAY AEROSOL TOPICAL PRN (12:49)
[2020-09-30] MEDS ORDERED: ACETAMINOPHEN TAB 325 MG TAB PO PRN (12:49)
[2020-09-30] MEDS ORDERED: diphenhydrAMINE 50 MG/ML 1 ML VIAL IVP PRN ×2 (12:49)
[2020-09-30] MEDS ORDERED: HYDROCORTISONE 2.5% RECTAL CREAM 30 GM TUBE RECTAL PRN (12:49)
[2020-09-30] MEDS ORDERED: LANOLIN CREAM 5 GM TUBE TOPICAL PRN (12:49)
[2020-09-30] MEDS ORDERED: OXYTOCIN 20 UNITS/1000 ML NS 1,000 ML IV SCH (13:00)
[2020-09-30] MEDS: IBUPROFEN 600 MG TAB PO PRN (21:36)
[2020-09-30] MEDS: SENNOSIDES-DOCUSATE SODIUM 1 EACH TAB PO SCH (21:37)
[2020-10-01 01:05] VITALS: RESP 16
[2020-10-01 07:03] LABS: Basophils % (A) 0 %; Eosinophils # (A) 0.1 k/uL (0-0.7); Eosinophils % (A) 1 %; HCT 31.1 % (34.0-46.0); HGB 10.2 gm/dL (11.4-16.0); Hypochromasia Slight; Lymphocytes # (A) 1.5 k/uL (1.0-4.8); Lymphocytes % (A) 9 %; MCH 24.6 pg (25.0-35.0); MCHC 32.7 g/dL (31.0-37.0); MCV 75.4 fL (80.0-100.0); Mean Platelet Volume 8.4; Microcytosis Slight; Monocytes # (A) 0.7 k/uL (0-1.0); Monocytes % (A) 4 %; Neutrophils # (A) 13.7 k/uL (1.3-7.7); Neutrophils % (A) 85 %; Platelet Count 211 k/uL (150-450); RBC 4.13 m/uL (3.80-5.40); WBC 16.3 k/uL (3.8-10.6)
[2020-10-01] MEDS: SENNOSIDES-DOCUSATE SODIUM 1 EACH TAB PO SCH (08:32)
[2020-10-01] MEDS: IBUPROFEN 600 MG TAB PO PRN (08:32)
[2020-10-01 09:33] VITALS: BP 111/62; PULSE 88; TEMP 97.2
--- NOTE | 2020-10-01 09:33 | P.HPOB ---
History of Present Illness H&P Date: 09/30/20 Chief Complaint: Induction of labor 25-year-old presents at 39 weeks for induction of labor. Her cervix is 3 cm dilated, 70% effaced, -2 station. She is clovis irregularly. heart tones are 135 with moderate variability and reactive. Review of Systems All systems: negative Constitutional: Denies chills, Denies fever Eyes: denies blurred vision, denies pain Ears, nose, mouth and throat: Denies headache, Denies sore throat Cardiovascular: Denies chest pain, Denies shortness of breath Respiratory: Denies cough Gastrointestinal: Denies abdominal pain, Denies diarrhea, Denies nausea, Denies vomiting Genitourinary: Denies dysuria, Denies hematuria Musculoskeletal: Denies myalgias Integumentary: Denies pruritus, Denies rash Neurological: Denies numbness, Denies weakness Psychiatric: Denies anxiety, Denies depression Endocrine: Denies fatigue, Denies weight change Past Medical History Past Medical History: No Reported History Additional Past Medical History / Comment(s): Obstetric history: She's had 2 previous vaginal deliveries. Blood type O positive, antibodies negative, rubella immune, History of Any Multi-Drug Resistant Organisms: None Reported Past Surgical History: No Surgical Hx Reported Past Anesthesia/Blood Transfusion Reactions: No Reported Reaction Past Psychological History: No Psychological Hx Reported Smoking Status: Never smoker Past Alcohol Use History: None Reported Past Drug Use History: None Reported - Past Family History Mother Family Medical History: Cancer, Diabetes Mellitus Father Family Medical History: Hypertension Medications and Allergies Home Medications Medication Instructions Recorded Confirmed Type Pnv No.95/Ferrous Fum/Folic AC 1 tab PO DAILY #30 tablet 02/11/20 09/30/20 Rx [ Multivitamin Tablet] Allergies Allergy/AdvReac Type Severity Reaction Status Date / Time sulfamethoxazole AdvReac Rash/Hives Verified 02/11/20 08:52 [From Bactrim] trimethoprim [From Bactrim] AdvReac Rash/Hives Verified 02/11/20 08:52 Exam Osteopathic Statement: *. No significant issues noted on an osteopathic structural exam other than those noted in the History and Physical/Consult. Vital Signs Temp Pulse Resp BP Pulse Ox 10/01/20 00:00 98.6 F 101 H 16 101/62 98 09/30/20 20:00 98.9 F 84 14 96/70 09/30/20 16:00 98.5 F 79 16 113/59 09/30/20 14:02 82 16 101/59 09/30/20 13:32 98.0 F 75 16 112/72 09/30/20 13:00 85 16 105/64 09/30/20 12:30 83 16 101/59 09/30/20 12:15 71 16 97/57 09/30/20 12:00 68 16 107/63 09/30/20 11:45 85 16 104/72 09/30/20 11:30 88 16 107/74 09/30/20 11:15 98.3 F 89 16 99/67 Intake and Output 09/30/20 10/01/20 10/01/20 22:59 06:59 14:59 Other: # Voids 1 2 Heart: Regular rate and rhythm Lungs: Clear to auscultation bilaterally Abdomen: Soft, nontender Extremities: Negative Homans sign Results Result Diagrams: 10/01/20 06:37 Abnormal Lab Results - Last 24 Hours (Table) 10/01/20 Range/Units 06:37 WBC 16.3 H (3.8-10.6) k/uL Hgb 10.2 L (11.4-16.0) gm/dL Hct 31.1 L (34.0-46.0) % MCV 75.4 L (80.0-100.0) fL MCH 24.6 L (25.0-35.0) pg Neutrophils # 13.7 H (1.3-7.7) k/uL Assessment and Plan (1) Normal labor Current Visit: No Status: Resolved Code(s): O80 - ENCOUNTER FOR FULL-TERM UNCOMPLICATED DELIVERY; Z37.9 - OUTCOME OF DELIVERY, UNSPECIFIED SNOMED Code(s): 50116383 Plan: 1. Induction of labor with amniotomy and Pitocin 2. Anticipate normal vaginal delivery
--- NOTE | 2020-10-01 09:35 | P.PROBDLV ---
Vaginal Delivery Note - . Vaginal Delivery Note: 25-year-old presents at 39 weeks for induction of labor. Her cervix is 3 cm dilated, 70% effaced, -2 station. She is clovis irregularly. heart tones are 135 with moderate variability and reactive. Pitocin was started. Amniotomy performed at 7:15 AM and clear fluid noted. When she was uncomfortable she did get an epidural. Her cervix was completely dilated at 11:00. She pushed, delivered a viable female over intact perineum under epidural anesthesia at 11:06 AM. Head delivered OA, nuchal cord was quite tight was doubly clamped and cut at the perineum. Anterior shoulder delivered gentle downward guidance followed by posterior shoulder and rest of body. Nose and mouth bulb suctioned, cord clamped and cut, infant placed on mother's abdomen. Apgars 9, 9, weight 6 lbs. 15 oz. Placenta delivered spontaneously, intact with three-vessel cord at 11:08 AM. Vagina, cervix, perineum inspected. No lacerations noted. Estimated blood loss 300 mL. Mother and baby in stable condition.
--- NOTE | 2020-10-01 09:37 | P.DS ---
Providers Date of admission: 09/30/20 06:07 Expected date of discharge: 10/01/20 Attending physician: Carissa Porras Primary care physician: Stated None - Discharge Diagnosis(es) (1) Normal labor Current Visit: No Status: Resolved (2) Normal vaginal delivery Current Visit: No Status: Acute Hospital Course: Is and presented for induction of labor. She underwent a normal vaginal delivery. Her course was uncomplicated. She'll be discharged home day #1 in stable condition to follow-up with me in 6 weeks. Plan - Discharge Summary New Discharge Prescriptions: New Ibuprofen [Motrin] 600 mg PO Q6HR PRN #30 tab PRN Reason: Mild Pain Or Fever >= 100.5 No Action Pnv No.95/Ferrous Fum/Folic AC [ Multivitamin Tablet] 1 tab PO DAILY #30 tablet Discharge Medication List Pnv No.95/Ferrous Fum/Folic AC [ Multivitamin Tablet] 1 tab PO DAILY #30 tablet 02/11/20 [Rx] Ibuprofen [Motrin] 600 mg PO Q6HR PRN #30 tab 10/01/20 [Rx] Follow up Appointment(s)/Referral(s): Carissa Porras DO [Doctor of Osteopathic Medicine] - 6 Weeks Discharge Disposition: HOME SELF-CARE
== END 2020-10-01 13:10 | disposition home or self-care (01) | DRG 807 ==
LOC: 4FBP 06:07
PROVIDERS: ADMIT Obstetrics & Gynecology; ATTEND Obstetrics & Gynecology
PROC: 3E0R3BZ Introduction of Anesthetic Agent into Spinal Canal, Percutaneous Approach (ICD-10-PCS; principal; 2020-09-30)
PROC: 3E033VJ Introduction of Other Hormone into Peripheral Vein, Percutaneous Approach (ICD-10-PCS; principal; 2020-09-30)
PROC: 10907ZC Drainage of Amniotic Fluid, Therapeutic from Products of Conception, Via Natural or Artificial Opening (ICD-10-PCS; principal; 2020-09-30)
PROC: 00HU33Z Insertion of Infusion Device into Spinal Canal, Percutaneous Approach (ICD-10-PCS; principal; 2020-09-30)
PROC: 10E0XZZ Delivery of Products of Conception, External Approach (ICD-10-PCS; principal; 2020-09-30)
DX: O69.1XX0 Labor and delivery complicated by cord around neck, with compression, not applicable or unspecified (principal); Z37.0 Single live birth; Z3A.39 39 weeks gestation of pregnancy; Z88.1 Allergy status to other antibiotic agents; Z88.2 Allergy status to sulfonamides; Z87.09 Personal history of other diseases of the respiratory system; Z82.49 Family history of ischemic heart disease and other diseases of the circulatory system; Z83.3 Family history of diabetes mellitus; Z80.9 Family history of malignant neoplasm, unspecified
CPT/HCPCS: 85025; 86850; 86900; 86901

== ENCOUNTER 2021-07-21 06:00 | Inpatient (IN) | payer BC, OTHER ==
[2021-07-21] MEDS ORDERED: LIDOCAINE 0.5% (PF) 5 MG/ML (50 ML SDV) SQ PRN (06:19)
[2021-07-21] MEDS ORDERED: METHYLERGONOVINE 0.2 MG/ML 1 ML AMP IM PRN (06:19)
[2021-07-21] MEDS ORDERED: CARBOPROST TROMETHAMINE 250 MCG/ML 1 ML AMP IM PRN (06:19)
[2021-07-21] MEDS ORDERED: OXYTOCIN 10 UNIT/ML 1 ML VIAL IM PRN (06:19)
[2021-07-21] MEDS ORDERED: TERBUTALINE 1 MG/ML VIAL SQ PRN (06:19)
[2021-07-21] MEDS ORDERED: OXYTOCIN 30 UNITS/500 ML NS 30 UNIT in SALINE 1 500ML.BAG IV SCH ×2 (06:30→12:30)
[2021-07-21 06:54] LABS: Glucose,Whole Blood 91 mg/dL (75-99)
[2021-07-21] MEDS: LACTATED RINGERS 1,000 ML IV SCH ×2 (07:03→09:46)
[2021-07-21 07:32] LABS: Basophils % (A) 0 %; Eosinophils # (A) 0.2 k/uL (0-0.7); Eosinophils % (A) 3 %; HCT 29.6 % (34.0-46.0); HGB 9.4 gm/dL (11.4-16.0); Hypochromasia Marked; Lymphocytes # (A) 1.8 k/uL (1.0-4.8); Lymphocytes % (A) 21 %; MCHC 31.9 g/dL (31.0-37.0); MCV 72.3 fL (80.0-100.0); Mean Platelet Volume 7.7; Microcytosis Moderate; Monocytes # (A) 0.5 k/uL (0-1.0); Monocytes % (A) 6 %; Neutrophils # (A) 5.8 k/uL (1.3-7.7); Neutrophils % (A) 68 %; Platelet Count 235 k/uL (150-450); Poikilocytosis Slight; RBC 4.09 m/uL (3.80-5.40); RDW 15.6 % (11.5-15.5); WBC 8.6 k/uL (3.8-10.6)
[2021-07-21] MEDS ORDERED: fentaNYL (PF) 50 MCG/ML 5 ML AMP ONE (09:22)
[2021-07-21] MEDS ORDERED: ROPIVACAINE 5MG/ML 20ML VIAL ONE (09:22)
[2021-07-21] MEDS ORDERED: SODIUM CHLORIDE 0.9% 100 ML BAG ONE (09:22)
[2021-07-21] MEDS ORDERED: diphenhydrAMINE 25 MG CAP PO PRN (12:20)
[2021-07-21] MEDS ORDERED: SIMETHICONE 80 MG CHEWABLE PO PRN (12:20)
[2021-07-21] MEDS ORDERED: HYDROCORTISONE 2.5% RECTAL CREAM 30 GM TUBE RECTAL PRN (12:20)
[2021-07-21] MEDS ORDERED: diphenhydrAMINE 50 MG CAP PO PRN (12:20)
[2021-07-21] MEDS ORDERED: ACETAMINOPHEN TAB 325 MG TAB PO PRN (12:20)
[2021-07-21] MEDS ORDERED: BENZOCAINE/MENTHOL SPRAY 1 GM/SPRAY AEROSOL TOPICAL PRN (12:20)
[2021-07-21] MEDS ORDERED: diphenhydrAMINE 50 MG/ML 1 ML VIAL IVP PRN ×2 (12:20)
[2021-07-21] MEDS ORDERED: LANOLIN CREAM 5 GM TUBE TOPICAL PRN (12:20)
[2021-07-21] MEDS ORDERED: ZOLPIDEM 5 MG TAB PO PRN (12:20)
--- NOTE | 2021-07-21 12:23 | P.HPOB ---
History of Present Illness H&P Date: 07/21/21 Chief Complaint: induction of labor 26 year old presents at 39 weeks for induction of labor. Cervix is 5 cm dilated, 70% effaced, and -2 station. She is clovis irregularly. heart tones 140 with moderate variability and reactive. Review of Systems All systems: negative Constitutional: Denies chills, Denies fever Eyes: denies blurred vision, denies pain Ears, nose, mouth and throat: Denies headache, Denies sore throat Cardiovascular: Denies chest pain, Denies shortness of breath Respiratory: Denies cough Gastrointestinal: Denies abdominal pain, Denies diarrhea, Denies nausea, Denies vomiting Genitourinary: Denies dysuria, Denies hematuria Musculoskeletal: Denies myalgias Integumentary: Denies pruritus, Denies rash Neurological: Denies numbness, Denies weakness Psychiatric: Denies anxiety, Denies depression Endocrine: Denies fatigue, Denies weight change Past Medical History Past Medical History: No Reported History Additional Past Medical History / Comment(s): Obstetric history: She's had 3 previous vaginal deliveries. Blood type O positive, antibodies negative, rubella immune,. RPR nonreactive, hepatitis B negative. She does have gestational diabetes controlled with diet, blood sugar today is 95 History of Any Multi-Drug Resistant Organisms: None Reported Past Surgical History: No Surgical Hx Reported Past Anesthesia/Blood Transfusion Reactions: No Reported Reaction Past Psychological History: No Psychological Hx Reported Smoking Status: Never smoker Past Alcohol Use History: None Reported Past Drug Use History: None Reported - Past Family History Mother Family Medical History: Cancer, Diabetes Mellitus Father Family Medical History: Hypertension Medications and Allergies Home Medications Medication Instructions Recorded Confirmed Type Pnv No.95/Ferrous Fum/Folic AC 1 tab PO DAILY #30 tablet 02/11/20 07/21/21 Rx [ Multivitamin Tablet] Acyclovir 400 mg PO BID 07/21/21 07/21/21 History Allergies Allergy/AdvReac Type Severity Reaction Status Date / Time sulfamethoxazole AdvReac Rash/Hives Verified 07/21/21 06:18 [From Bactrim] trimethoprim [From Bactrim] AdvReac Rash/Hives Verified 07/21/21 06:18 Exam Osteopathic Statement: *. No significant issues noted on an osteopathic structural exam other than those noted in the History and Physical/Consult. Vital Signs Temp Pulse Resp BP Pulse Ox 07/21/21 06:17 98.0 F 86 18 119/76 99 Intake and Output 07/20/21 07/21/21 07/21/21 22:59 06:59 14:59 Other: Weight 79.832 kg Heart: Regular rate and rhythm Lungs: Clear to auscultation bilaterally Abdomen: Soft, nontender Extremities: Negative Homans sign Results Result Diagrams: 07/21/21 06:50 Abnormal Lab Results - Last 24 Hours (Table) 07/21/21 Range/Units 06:50 Hgb 9.4 L (11.4-16.0) gm/dL Hct 29.6 L (34.0-46.0) % MCV 72.3 L (80.0-100.0) fL MCH 23.0 L (25.0-35.0) pg RDW 15.6 H (11.5-15.5) % Assessment and Plan (1) Encounter for induction of labor Current Visit: Yes Status: Acute Code(s): Z34.90 - ENCNTR FOR SUPRVSN OF NORMAL , UNSP, UNSP TRIMESTER SNOMED Code(s): 495222626 Plan: 1. Induction of labor with amniotomy and Pitocin 2. Anticipate normal vaginal delivery
--- NOTE | 2021-07-21 12:24 | P.PROBDLV ---
Vaginal Delivery Note - . Vaginal Delivery Note: 26 year old presents at 39 weeks for induction of labor. Cervix is 5 cm dilated, 70% effaced, and -2 station. She is clovis irregularly. heart tones 140 with moderate variability and reactive. Pitocin was started and amniotomy was performed at 7:23 AM, clear fluid noted. When she was uncomfortable she did get an epidural. Her cervix is completely dilated at 12:04 PM. She pushed, and delivered a viable female infant over intact perineum under epidural anesthesia at 12:06 PM. Head delivered OA, anterior shoulder delivered gentle guidance of the posterior shoulder and rest of body. Nose and mouth bulb suctioned cord and cut, infant placed mother's abdomen. Apgars 9, 9, weight pending. Placenta delivered spontaneous, intact with three-vessel cord at 12:08 PM. Vagina, cervix, perineum inspected. No lacerations noted. Estimated blood loss 200 mL. Mother and baby in stable condition.
[2021-07-21 16:55] LABS: Hemoglobin A1C 5.6 % (4.0-6.0)
[2021-07-21] MEDS: SENNOSIDES-DOCUSATE SODIUM 1 EACH TAB PO SCH (20:08)
[2021-07-21 21:22] VITALS: RESP 18
[2021-07-21] MEDS: IBUPROFEN 600 MG TAB PO PRN (23:23)
[2021-07-22] MEDS: IBUPROFEN 600 MG TAB PO PRN ×2 (06:38→12:17)
--- NOTE | 2021-07-22 06:54 | P.PNOBGVD ---
Subjective - Subjective Patient reports: Reports appetite normal, Reports voiding normally, Reports pain well controlled, Reports ambulating normally : doing well Objective - Latest Vital Signs Latest vital signs: Vital Signs Temp Pulse Resp BP Pulse Ox 07/21/21 23:51 98.8 F 84 18 108/70 99 07/21/21 21:21 97.8 F 78 18 107/74 99 07/21/21 16:00 98.9 F 74 16 104/65 07/21/21 14:15 98.4 F 73 16 112/74 07/21/21 13:45 97.5 F L 71 16 115/74 07/21/21 13:15 97.8 F 73 15 123/80 07/21/21 13:00 83 16 123/78 07/21/21 12:45 78 15 119/71 07/21/21 12:30 73 16 118/62 07/21/21 12:15 97.1 F L 77 16 114/66 Intake and Output 07/21/21 07/21/21 07/22/21 14:59 22:59 06:59 Intake Total 177.650 480 Output Total 200 Balance -22.350 480 Intake: Intake, IV Titration 177.650 Amount Oxytocin 30 Units/500 ml 177.650 Ns 30 unit In Saline 1 500ml.bag @ Per Protocol IV .Q0M [facility] Rx#:[id number] Oral 480 Output: Estimated Blood Loss 200 Other: # Voids 1 1 - Exam Lungs: bilateral: normal Chest: Normal S1, Normal S2 Extremities: Present: normal Abdomen: Present: normal appearance, soft Uterus: Present: normal, firm - Labs Labs: Abnormal Lab Results - Last 24 Hours (Table) 07/21/21 Range/Units 06:50 Hgb 9.4 L (11.4-16.0) gm/dL Hct 29.6 L (34.0-46.0) % MCV 72.3 L (80.0-100.0) fL MCH 23.0 L (25.0-35.0) pg RDW 15.6 H (11.5-15.5) % Assessment and Plan Assessment: day #1. Patient is resting without complaints and wishes to go home. Vital signs are stable she is afebrile. Uterus is firm nontender and she is having normal lochia. My impression this is a normal course. Plan is to continue routine care discharge home later this morning (1) Normal vaginal delivery Current Visit: No Status: Acute Code(s): O80 - ENCOUNTER FOR FULL-TERM UNCOMPLICATED DELIVERY SNOMED Code(s): 46194050
--- NOTE | 2021-07-22 07:00 | P.DS ---
Providers Date of admission: 07/21/21 06:11 Expected date of discharge: 07/22/21 Attending physician: Carissa Porras Primary care physician: Stated None - Discharge Diagnosis(es) (1) Normal vaginal delivery Current Visit: No Status: Acute Hospital Course: Please see dictated H&P per Dr. Porras on patient's admission. Brief summary this is a 26-year-old 4 para 3 female 39 weeks gestation admitted to labor and delivery for elective induction of labor. Patient is admitting quickly goes on have a vaginal delivery viable female . Please see dictated delivery note. day #1 patient without complaints and wishes to go home. Patient's felt be stable for discharge home follow up with Dr. Porras 6 weeks Procedures: Induction of labor and normal vaginal delivery Patient Condition at Discharge: Good Plan - Discharge Summary New Discharge Prescriptions: New Ibuprofen [Motrin] 600 mg PO Q6HR PRN #30 tab PRN Reason: Pain No Action Pnv No.95/Ferrous Fum/Folic AC [ Multivitamin Tablet] 1 tab PO DAILY #30 tablet Acyclovir 400 mg PO BID Discharge Medication List Pnv No.95/Ferrous Fum/Folic AC [ Multivitamin Tablet] 1 tab PO DAILY #30 tablet 02/11/20 [Rx] Acyclovir 400 mg PO BID 07/21/21 [History] Ibuprofen [Motrin] 600 mg PO Q6HR PRN #30 tab 07/22/21 [Rx] Follow up Appointment(s)/Referral(s): Carissa Porras DO [Doctor of Osteopathic Medicine] - 08/30/21 3:45 pm Patient Instructions/Handouts: Vaginal Delivery (DC) Activity/Diet/Wound Care/Special Instructions: No intercourse or anything per vagina for 6 weeks. Please call if any fever, chills, excessive vaginal bleeding, and/or abdominal pain. Discharge Disposition: HOME SELF-CARE
[2021-07-22 07:51] LABS: Basophils % (A) 0 %; Eosinophils # (A) 0.2 k/uL (0-0.7); Eosinophils % (A) 1 %; HGB 8.7 gm/dL (11.4-16.0); Hypochromasia Moderate; Lymphocytes # (A) 1.7 k/uL (1.0-4.8); Lymphocytes % (A) 12 %; MCHC 32.3 g/dL (31.0-37.0); MCV 71.4 fL (80.0-100.0); Mean Platelet Volume 8.9; Microcytosis Moderate; Monocytes # (A) 0.6 k/uL (0-1.0); Monocytes % (A) 4 %; Neutrophils # (A) 10.9 k/uL (1.3-7.7); Neutrophils % (A) 80 %; Platelet Count 220 k/uL (150-450); Poikilocytosis Slight; RBC 3.78 m/uL (3.80-5.40); RDW 15.7 % (11.5-15.5); WBC 13.6 k/uL (3.8-10.6)
[2021-07-22 09:09] VITALS: BP 112/63; PULSE 89; TEMP 98
[2021-07-22] MEDS: SENNOSIDES-DOCUSATE SODIUM 1 EACH TAB PO SCH (09:10)
== END 2021-07-22 13:50 | disposition home or self-care (01) | DRG 807 ==
LOC: 4FBP 06:11
PROVIDERS: ADMIT Obstetrics & Gynecology; ATTEND Obstetrics & Gynecology
PROC: 10E0XZZ Delivery of Products of Conception, External Approach (ICD-10-PCS; principal; 2021-07-21)
PROC: 10907ZC Drainage of Amniotic Fluid, Therapeutic from Products of Conception, Via Natural or Artificial Opening (ICD-10-PCS; 2021-07-21)
DX: O24.410 Gestational diabetes mellitus in pregnancy, diet controlled (principal); Z37.0 Single live birth; Z3A.39 39 weeks gestation of pregnancy; Z82.49 Family history of ischemic heart disease and other diseases of the circulatory system; Z83.3 Family history of diabetes mellitus
CPT/HCPCS: 83036; 85025; 86850; 86900; 86901

== ENCOUNTER 2025-05-22 05:59 | Emergency (ER) | payer BC, OTHER ==
--- NOTE | 2025-05-22 06:21 | ED ---
Dizziness HPI - General Chief Complaint: Dizziness Stated Complaint: Dizzy Time Seen by Provider: 05/22/25 06:05 Source: patient, RN notes reviewed Mode of arrival: ambulatory Limitations: no limitations - History of Present Illness Initial Comments: This is a 29-year-old female who presents to the emergency department for dizziness. Patient has a longstanding history of vertigo for the last 10 years. States that when she woke up this morning she had another flareup. States that this is consistent with typical vertigo symptoms. It is worse if she tries to turn her head and she feels a room spinning sensation with some nausea. She tried taking one of her meclizine tablets, however it was not effective this time. States that it is only occasionally effective every now and then, but never seems to offer much in the way of sustained relief. Denies any headaches, chest pain, or shortness of breath. MD Complaint: dizziness - Related Data Home Medications Medication Instructions Recorded Confirmed Acyclovir [Zovirax] 400 mg PO BID 07/21/21 07/21/21 Previous Rx's Medication Instructions Recorded Pnv No.95/Ferrous Fum/Folic AC 1 tab PO DAILY #30 tablet 02/11/20 [ Multivitamin Tablet] Ibuprofen [Motrin] 600 mg PO Q6HR PRN #30 tab 07/22/21 Meclizine HCl [Dramamine] 25 mg PO QID PRN #30 tab 05/22/25 Metoclopramide [Reglan] 10 mg PO Q6H PRN #20 tab 05/22/25 diazePAM [Valium] 5 mg PO Q8HR PRN #9 tab 05/22/25 Allergies Allergy/AdvReac Type Severity Reaction Status Date / Time sulfamethoxazole AdvReac Rash/Hives Verified 05/22/25 06:04 [From Bactrim] trimethoprim [From Bactrim] AdvReac Rash/Hives Verified 05/22/25 06:04 Review of Systems ROS Statement: Those systems with pertinent positive or pertinent negative responses have been documented in the HPI. ROS Other: All systems not noted in ROS Statement are negative. Past Medical History Past Medical History: No Reported History Additional Past Medical History / Comment(s): Obstetric history: She's had 3 previous vaginal deliveries. Blood type O positive, antibodies negative, rubella immune,. RPR nonreactive, hepatitis B negative. She does have gestational diabetes controlled with diet, blood sugar today is 95 History of Any Multi-Drug Resistant Organisms: None Reported Past Surgical History: No Surgical Hx Reported Past Anesthesia/Blood Transfusion Reactions: No Reported Reaction Past Psychological History: No Psychological Hx Reported Smoking Status: Never smoker Past Alcohol Use History: None Reported Past Drug Use History: None Reported - Past Family History Mother Family Medical History: Cancer, Diabetes Mellitus Father Family Medical History: Hypertension General Exam Limitations: no limitations General appearance: alert, in no apparent distress Head exam: Present: atraumatic, normocephalic, normal inspection Eye exam: Present: normal appearance, PERRL, EOMI. Absent: scleral icterus, conjunctival injection, periorbital swelling Respiratory exam: Present: normal lung sounds bilaterally. Absent: respiratory distress, wheezes, rales, rhonchi, stridor Cardiovascular Exam: Present: regular rate, normal rhythm Neurological exam: Present: alert, oriented X3, CN II-XII intact Psychiatric exam: Present: normal affect, normal mood Skin exam: Present: warm, dry, intact, normal color. Absent: rash Course Vital Signs 05/22/25 05/22/25 06:02 10:34 Temperature 98 F Pulse Rate 82 84 Respiratory 18 17 Rate Blood Pressure 123/84 110/79 O2 Sat by Pulse 99 99 Oximetry Medical Decision Making - Medical Decision Making This is a 29-year-old female who presents to the emergency department for dizziness. Was pt. sent in by a medical professional or institution? @ -No Did you speak to anyone other than the patient for history? @ -No Did you review nursing and triage notes? @ -Yes, and I agree, it is accurate with regards to the patient's symptoms. Were old charts reviewed? @ -No Differential Diagnosis? @ -Differential Dizziness: Benign paroxysmal positional Vertigo, Meniere's disease, otitis media, acoustic neuroma, vertebrobasilar insufficiency, cerebellar stroke, encephalitis, hypovolemic, arrhythmia, coronary artery syndrome, anemia, this is not meant to be an all-inclusive list EKG interpreted by me (3pts min.)? @ -EKG interpreted by me demonstrating the following: Sinus rhythm. Ventricular rate 83 bpm, ID interval 156 ms, QRS duration 92 ms, QTc 399 ms. X-rays interpreted by me (1pt min.)? @ -Not obtained CT interpreted by me (1pt min.)? @ -Not obtained U/S interpreted by me (1pt. min.)? @ -Not obtained What testing was considered but not performed? (CT, X-rays, U/S, labs)? Why? @ -None What meds were considered but not given? Why? @ -None Did you discuss the management of the patient with other professionals? @ -No Did you reconcile home meds? @ -No Was smoking cessation discussed for >3mins.? @ -No Was critical care preformed (if so, how long)? @ -No Were there social determinants of health that impacted care today? How? (Homelessness, low income, unemployed, alcoholism, drug addiction, transport ation, low edu. Level, literacy, decrease access to med. care, retirement, rehab)? @ -No Was there de-escalation of care discussed even if they declined? (Discuss DNR or withdrawal of care, Hospice)? @ -No What co-morbidities impacted this encounter? (DM, HTN, Smoking, COPD, CAD, Cancer, CVA, Hep., AIDS, mental health diagnosis, sleep apnea, morbid obesity)? @ -Vertigo Was patient admitted / discharged? @ -Discharged. Urinalysis and urine test negative. NIH was 0 on arrival. HINTS exam performed as well which was also negative. Given that this was consistent with her ongoing history of vertigo and symptoms were not different, no additional testing was obtained, which the patient was in agreem ent with. We were able to get her symptoms under control with the addition of Reglan and Valium in conjunction with the meclizine. Valium and Reglan prescribed for any additional vertigo flares. Refill on meclizine provided as well. Also advised she look into the half somersault maneuver as an additional treatment option. Patient discharged home in stable condition and advised to follow-up with her PCP. Case discussed with ED attending Dr. Haddad. Return precautions reviewed in depth, the patient is instructed to return to the emergency department with any new, worsening, or concerning symptoms. Patient verbalized understanding. Undiagnosed new problem with uncertain prognosis? @ -None Drug Therapy requiring intensive monitoring for toxicity (Heparin, Nitro, Insulin, Cardizem)? @ -None Were any procedures done? @ -None Diagnosis/symptom? @ -Vertigo Acute, or Chronic, or Acute on Chronic? @ -Acute Uncomplicated (without systemic symptoms) or Complicated (systemic symptoms)? @ -Uncomplicated Side effects of treatment? @ -None Exacerbation, Progression, or Severe Exacerbation] @ -Not applicable Poses a threat to life or bodily function? @ -No - Lab Data Lab Results 05/22/25 05/22/25 Range/Units 06:10 06:10 Urine Color Colorless Urine Appearance Clear (Clear) Urine pH 7.0 (5.0-8.0) Ur Specific [place] 1.018 (1.001-1.035) Urine Protein Negative (Negative) Urine Glucose (UA) Negative (Negative) Urine Ketones Negative (Negative) Urine Blood Negative (Negative) Urine Nitrite Negative (Negative) Urine Bilirubin Negative (Negative) Urine Urobilinogen <2.0 (<2.0) mg/dL Ur Leukocyte Esterase Small H (Negative) Urine RBC 1 (0-5) /hpf Urine WBC 1 (0-5) /hpf Ur Squamous Epith Cells 6 H (0-4) /hpf Urine Mucus Occasional H (None) /hpf Urine HCG, Qual Not Detected (Not Detectd) Disposition Clinical Impression: BPPV (benign paroxysmal positional vertigo) Disposition: HOME SELF-CARE Instructions (If sedation given, give patient instructions): Vertigo (ED), Benign Paroxysmal Positional Vertigo (ED) Additional Instructions: Return to the emergency department with any new, worsening, or concerning symptoms. Continue to take the meclizine up to 4 times daily for feelings of vertigo. The Reglan can be taken up to every 6 hours. This can be used for jennyfer th nausea/vomiting as well as vertigo symptoms. The Valium can also be taken up to 3 times daily for feelings of vertigo. Review the documentation provided regarding the half somersault maneuver, which is something you can do at home to try to correct the vertigo. You can also find videos of this online for additional instruction. Prescriptions: Meclizine HCl [Dramamine] 25 mg PO QID PRN #30 tab PRN Reason: Vertigo Metoclopramide [Reglan] 10 mg PO Q6H PRN #20 tab PRN Reason: Nausea And Vomiting diazePAM [Valium] 5 mg PO Q8HR PRN #9 tab PRN Reason: Vertigo Is patient prescribed a controlled substance at d/c from ED?: Yes When asked, does pt state using other controlled substances?: No If prescribed controlled substance>3 days was MAPS reviewed?: Prescribed <3 Days Referrals: Nonstaff,Physician [REFERRING] - 1-2 days Forms: Area PCPs Time of Disposition: 09:57
[2025-05-22] MEDS: SODIUM CHLORIDE 0.9% 1,000 ML IV ONE (06:24)
[2025-05-22] MEDS: METOCLOPRAMIDE 5 MG/ML 2 ML VIAL IVP STA (06:40)
[2025-05-22] MEDS: SCOPOLAMINE 1 MG/72 HR PATCH TRANSDERM STA (07:20)
[2025-05-22] MEDS: MECLIZINE 12.5 MG TAB PO STA (07:24)
[2025-05-22 07:37] LABS: Bilirubin,Urine Negative (Negative); Blood,Urine Negative (Negative); Color,Urine Colorless; Glucose,Urine (UA) Negative (Negative); Ketones,Urine Negative (Negative); Leukocyte Esterase,Urine Small (Negative); Mucus,Urine Occasional /hpf; Nitrite,Urine Negative (Negative); PH, Urine 7.0 (5.0-8.0); Protein,Urine Negative (Negative); RBC,Urine 1 /hpf (0-5); Specific Gravity,Urine 1.018 (1.001-1.035); Squamous Epithelial Cell,Urine 6 /hpf (0-4); Urobilinogen,Urine <2.0 mg/dL (<2.0); WBC,Urine 1 /hpf (0-5)
[2025-05-22 10:14] VITALS: TEMP 98
[2025-05-22 10:35] VITALS: BP 110/79; PULSE 84; RESP 17
== END 2025-05-22 10:34 | disposition home or self-care (01) ==
LOC: EC 05:59
DX: H81.10 Benign paroxysmal vertigo, unspecified ear (principal); Z88.2 Allergy status to sulfonamides
CPT/HCPCS: 99284; 93005; 81001; 81025; 96374; 96375; 96376; 96361; J2765; J3360